=== PATIENT | male | born 1965 | race Caucasian/White ===

== ENCOUNTER → 2017-08-14 | Outpatient (CLI) | payer BC ==
--- NOTE | 2017-08-15 06:17 | RAD ---
HISTORY: Left foot popping and pain, tenderness Study: Left foot AP, lateral, oblique Comparison: None Findings: There is a nondisplaced transverse fracture of the base of the 5th metatarsal present. The remainder of the bones and joints of the foot are intact and normally aligned. No definite soft tissue abnormal ity is identified. IMPRESSION: Nondisplaced transverse fracture base 5th metatarsal Reported By:
== END | disposition home or self-care (01) | DRG 556 ==
LOC: RAD 15:43
PROVIDERS: ATTEND Obstetrics & Gynecology Obstetrics
DX: M25.572 Pain in left ankle and joints of left foot (principal); S92.355A Nondisplaced fracture of fifth metatarsal bone, left foot, initial encounter for closed fracture; X58.XXXA Exposure to other specified factors, initial encounter
CPT/HCPCS: 73630

== ENCOUNTER → 2017-11-29 | Outpatient (CLI) | payer BC ==
[2017-11-29 08:11] LABS: BASOPHILS # (AUTO) 0.1 X10^3/uL (0.0-0.1); EOSINOPHILS # (AUTO) 0.1 x10^3/uL (0.0-0.2); EOSINOPHILS % (AUTO) 1.5 % (0.9-2.9); HEMATOCRIT 42.9 % (42.0-54.0); HEMOGLOBIN 15.1 g/dL (13.5-18.0); LYMPHOCYTES # (AUTO) 1.8 X10^3/uL (1.3-2.9); LYMPHOCYTES % (AUTO) 25.5 % (21.0-51.0); MEAN CORPUSCULAR HEMOGLOBIN 30.1 pg (27.0-34.0); MEAN CORPUSCULAR HGB CONC 35.3 g/dL (33.0-35.0); MEAN CORPUSCULAR VOLUME 85.1 fL (80.0-100.0); MEAN PLATELET VOLUME 7.7 fL (7.4-11.0); MONOCYTES # (AUTO) 0.4 x10^3/uL (0.3-0.8); MONOCYTES % (AUTO) 5.6 % (0.0-13.0); NEUTROPHILS # (AUTO) 4.7 x10^3/uL (2.2-4.8); NEUTROPHILS % (AUTO) 65.4 % (42.0-75.0); PLATELET COUNT 336 X10^3/uL (150.0-450.0); RED BLOOD COUNT 5.04 X10^6/uL (4.7-6.0); RED CELL DISTRIBUTION WIDTH 12.9 % (11.6-16.5); WHITE BLOOD COUNT 7.2 X10^3/uL (3.6-10.0)
[2017-11-29 08:13] LABS: ALANINE AMINOTRANSFERASE 44 Units/L (12-78); ALBUMIN 3.6 g/dL (3.4-5.0); ALKALINE PHOSPHATASE 101 Units/L (46-116); ASPARTATE AMINO TRANSFERASE 25 Units/L (15-37); BLOOD UREA NITROGEN 17 mg/dL (7-18); CALCIUM 8.1 mg/dL (8.5-10.1); CARBON DIOXIDE 26.8 mmol/L (21-32); CHLORIDE 104 mmol/L (98-107); COR NA(FOR HYPERGLY) 137 mmol/L (136-145); CREATININE 1.23 mg/dL (0.70-1.30); SODIUM 137 mmol/L (136-145); TOTAL PROTEIN 7.5 g/dL (6.4-8.2); eGFR BLACK RACES > 60 (>60); eGFR NON BLACK RACES > 60 (>60)
--- NOTE | 2017-11-29 08:17 | RAD ---
Examination: Chest, PA and lateral views History: Preop Findings: Normal appearance of heart, lungs, mediastinum and pleural spaces. Impression: Chest examination within normal limits. Reported By:
== END ==
LOC: LAB 07:40
PROVIDERS: ATTEND Surgery
DX: Z01.818 Encounter for other preprocedural examination (principal); Z01.810 Encounter for preprocedural cardiovascular examination; Z01.811 Encounter for preprocedural respiratory examination; K40.90 Unilateral inguinal hernia, without obstruction or gangrene, not specified as recurrent
CPT/HCPCS: 36415; 71046; 80053; 85025; 93005; 93010

== ENCOUNTER 2017-12-16 17:51 | Observation (INO) ==
[2017-12-16] MEDS ORDERED: D5 1/2 NS 1000 ML 1,000 ML IV ONE (17:59)
[2017-12-16] MEDS ORDERED: ELIQUIS ONE (18:00)
[2017-12-16] MEDS: ELIQUIS PO SCH ×2 (18:18→21:17)
[2017-12-16] MEDS: D5 1/2 NS 1000 ML 1,000 ML IV SCH (18:18)
[2017-12-16 18:57] VITALS: BMI 30.3
[2017-12-16] MEDS: RESTORIL CAP 15 MG PO PRN (21:17)
[2017-12-17] MEDS: D5 1/2 NS 1000 ML 1,000 ML IV SCH ×4 (05:17→20:37)
[2017-12-17 06:07] LABS: BASOPHILS # (AUTO) 0.1 X10^3/uL (0.0-0.1); BASOPHILS % (AUTO) 1.3 % (0.2-1.0); EOSINOPHILS # (AUTO) 0.3 x10^3/uL (0.0-0.2); EOSINOPHILS % (AUTO) 3.9 % (0.9-2.9); HEMATOCRIT 34.4 % (42.0-54.0); LYMPHOCYTES % (AUTO) 24.9 % (21.0-51.0); MEAN CORPUSCULAR HEMOGLOBIN 29.7 pg (27.0-34.0); MEAN CORPUSCULAR HGB CONC 34.8 g/dL (33.0-35.0); MEAN CORPUSCULAR VOLUME 85.4 fL (80.0-100.0); MEAN PLATELET VOLUME 7.5 fL (7.4-11.0); MONOCYTES # (AUTO) 0.7 x10^3/uL (0.3-0.8); MONOCYTES % (AUTO) 9.4 % (0.0-13.0); NEUTROPHILS # (AUTO) 4.8 x10^3/uL (2.2-4.8); NEUTROPHILS % (AUTO) 60.5 % (42.0-75.0); PLATELET COUNT 420 X10^3/uL (150.0-450.0); RED BLOOD COUNT 4.03 X10^6/uL (4.7-6.0); RED CELL DISTRIBUTION WIDTH 12.9 % (11.6-16.5); WHITE BLOOD COUNT 7.9 X10^3/uL (3.6-10.0)
[2017-12-17 06:27] LABS: ALANINE AMINOTRANSFERASE 107 Units/L (12-78); ALBUMIN 2.4 g/dL (3.4-5.0); ALKALINE PHOSPHATASE 165 Units/L (46-116); ASPARTATE AMINO TRANSFERASE 29 Units/L (15-37); BLOOD UREA NITROGEN 13 mg/dL (7-18); CALCIUM 7.6 mg/dL (8.5-10.1); CARBON DIOXIDE 24.6 mmol/L (21-32); CHLORIDE 104 mmol/L (98-107); COR CA(FOR HYPOALB) 8.9 mg/dL (8.5-10.1); COR NA(FOR HYPERGLY) 138 mmol/L (136-145); SODIUM 137 mmol/L (136-145); TOTAL PROTEIN 6.8 g/dL (6.4-8.2); eGFR NON BLACK RACES > 60 (>60)
--- NOTE | 2017-12-17 07:14 | RAD ---
Chest one view. Indication: Shortness of breath Findings: Comparison 12/16/2017 The heart and mediastinum are stable. There is persistent left basilar nodular density. There is no v enous congestion or pneumothorax. The skeletal structures are stable. Impression: Persistent left lower lobe airspace changes. Underlying infiltrate not excluded. Reported By:
[2017-12-17] MEDS: ELIQUIS PO SCH ×2 (08:20→20:37)
--- NOTE | 2017-12-17 09:44 | VAS ---
HISTORY: 52-year-old male with bilateral pulmonary emboli. Study: Venous duplex Doppler bilateral lower extremities. Comparison: None. TECHNIQUE: Multiple carlos scale and color flow Doppler images of the deep venous system were obtained of the right and left lower extremity. FINDINGS: The deep venous system of the right and left lower extremities were evaluated from the level of the c ommon femoral vein through the popliteal vein. Normal color flow and augmentation can be observed. In addition, normal compression is seen throughout the deep venous system. IMPRESSION: 1. Negative for DVT. Reported By:
--- NOTE | 2017-12-17 13:41 | DR.PROGNOT ---
Hospital Progress Notes - Progress Note for Day of: Progress Note Date: 12/17/17 - Chief Complaint Chief Complaint: mild to moderate SOB . blood tinged cough . no chest pain . no evidence of DVT on Doppler studies . pt is anticoagulated allready . - Past Medical Family Social History Allergies: Allergies No Known Drug Allergies Allergy (Verified 12/06/17 07:30) - Vital Signs Vital Signs: Temperature 98.8 F Pulse Rate [Apical] 79 Respiratory Rate 18 Blood Pressure [Left Arm] 126/73 Blood Pressure [Right Arm] 118/68 Blood Pressure 140/85 O2 Sat by Pulse Oximetry 97 - Physical Exam Oriented: Normal Eyes: Normal Ear: Normal Nose: Normal Throat: Normal Respiratory: Normal, Left. negative: Right, Generalized, Superior, Inferior, Diminished, Rales, Rhonchi, OTHER GI: Tenderness: Normal, RLQ (Rt groin incision is healing well , no infection) Mood Description: Calm, Appropriate Affect: Normal Speech Pattern: Clear, Appropriate - Laboratory and Diagnostics Result Diagrams: 12/17/17 05:41 12/17/17 05:41 Labs: Laboratory WBC 7.9 X10^3/uL (3.6-10.0) 12/17/17 05:41 RBC 4.03 X10^6/uL (4.7-6.0) L 12/17/17 05:41 Hgb 12.0 g/dL (13.5-18.0) L 12/17/17 05:41 Hct 34.4 % (42.0-54.0) L 12/17/17 05:41 MCV 85.4 fL (80.0-100.0) 12/17/17 05:41 MCH 29.7 pg (27.0-34.0) 12/17/17 05:41 MCHC 34.8 g/dL (33.0-35.0) 12/17/17 05:41 RDW 12.9 % (11.6-16.5) 12/17/17 05:41 Plt Count 420 X10^3/uL (150.0-450.0) 12/17/17 05:41 MPV 7.5 fL (7.4-11.0) 12/17/17 05:41 Neut % (Auto) 60.5 % (42.0-75.0) 12/17/17 05:41 Lymph % (Auto) 24.9 % (21.0-51.0) 12/17/17 05:41 Johnson % (Auto) 9.4 % (0.0-13.0) 12/17/17 05:41 Eos % (Auto) 3.9 % (0.9-2.9) H 12/17/17 05:41 Baso % (Auto) 1.3 % (0.2-1.0) H 12/17/17 05:41 Neut # (Auto) 4.8 x10^3/uL (2.2-4.8) 12/17/17 05:41 Lymph # (Auto) 2.0 X10^3/uL (1.3-2.9) 12/17/17 05:41 Johnson # (Auto) 0.7 x10^3/uL (0.3-0.8) 12/17/17 05:41 Eos # (Auto) 0.3 x10^3/uL (0.0-0.2) H 12/17/17 05:41 Baso # (Auto) 0.1 X10^3/uL (0.0-0.1) 12/17/17 05:41 Absolute Nucleated RBC 0.0 /100WBC 12/17/17 05:41 Sodium 137 mmol/L (136-145) 12/17/17 05:41 Corrected Sodium 138 mmol/L (136-145) 12/17/17 05:41 Potassium 4.4 mmol/L (3.5-5.1) 12/17/17 05:41 Chloride 104 mmol/L (98-107) 12/17/17 05:41 Carbon Dioxide 24.6 mmol/L (21-32) 12/17/17 05:41 BUN 13 mg/dL (7-18) 12/17/17 05:41 Creatinine 1.00 mg/dL (0.70-1.30) 12/17/17 05:41 Est GFR (MDRD) Af Amer > 60 (>60) 12/17/17 05:41 Est GFR (MDRD) Non-Af > 60 (>60) 12/17/17 05:41 Glucose 127 mg/dL (65-99) H 12/17/17 05:41 Calcium 7.6 mg/dL (8.5-10.1) L 12/17/17 05:41 Corrected Calcium 8.9 mg/dL (8.5-10.1) 12/17/17 05:41 Total Bilirubin 0.30 mg/dL (0.2-1.0) 12/17/17 05:41 AST 29 Units/L (15-37) 12/17/17 05:41 ALT 107 Units/L (12-78) H 12/17/17 05:41 Alkaline Phosphatase 165 Units/L (46-116) H 12/17/17 05:41 Total Protein 6.8 g/dL (6.4-8.2) 12/17/17 05:41 Albumin 2.4 g/dL (3.4-5.0) L 12/17/17 05:41 Globulin 4.4 g/dL (2.5-4.5) 12/17/17 05:41 Albumin/Globulin Ratio 0.5 Ratio (1.1-2.1) L 12/17/17 05:41 - Assessment and Plan 1: bilateral segmental PE . no acuter distress. same coagulation , limited ambulation and soft diet - Problem Patient Problems: Patient Problems Pulmonary air embolism (Acute) T79.0XXA
[2017-12-17] MEDS: RESTORIL CAP 15 MG PO PRN (20:37)
[2017-12-18 06:33] LABS: BASOPHILS # (AUTO) 0.1 X10^3/uL (0.0-0.1); EOSINOPHILS # (AUTO) 0.3 x10^3/uL (0.0-0.2); EOSINOPHILS % (AUTO) 4.1 % (0.9-2.9); HEMATOCRIT 37.1 % (42.0-54.0); HEMOGLOBIN 12.9 g/dL (13.5-18.0); LYMPHOCYTES # (AUTO) 1.5 X10^3/uL (1.3-2.9); LYMPHOCYTES % (AUTO) 21.7 % (21.0-51.0); MEAN CORPUSCULAR HEMOGLOBIN 29.6 pg (27.0-34.0); MEAN CORPUSCULAR HGB CONC 34.7 g/dL (33.0-35.0); MEAN CORPUSCULAR VOLUME 85.5 fL (80.0-100.0); MEAN PLATELET VOLUME 7.6 fL (7.4-11.0); MONOCYTES # (AUTO) 0.6 x10^3/uL (0.3-0.8); NEUTROPHILS # (AUTO) 4.5 x10^3/uL (2.2-4.8); NEUTROPHILS % (AUTO) 65.2 % (42.0-75.0); PLATELET COUNT 552 X10^3/uL (150.0-450.0); RED BLOOD COUNT 4.35 X10^6/uL (4.7-6.0); RED CELL DISTRIBUTION WIDTH 13.1 % (11.6-16.5); WHITE BLOOD COUNT 6.9 X10^3/uL (3.6-10.0)
[2017-12-18 06:50] LABS: ALANINE AMINOTRANSFERASE 103 Units/L (12-78); ALBUMIN 2.6 g/dL (3.4-5.0); ALKALINE PHOSPHATASE 166 Units/L (46-116); ASPARTATE AMINO TRANSFERASE 29 Units/L (15-37); BLOOD UREA NITROGEN 8 mg/dL (7-18); CALCIUM 7.9 mg/dL (8.5-10.1); CARBON DIOXIDE 26.5 mmol/L (21-32); CHLORIDE 103 mmol/L (98-107); COR NA(FOR HYPERGLY) 139 mmol/L (136-145); CREATININE 1.06 mg/dL (0.70-1.30); SODIUM 138 mmol/L (136-145); TOTAL PROTEIN 7.4 g/dL (6.4-8.2); eGFR NON BLACK RACES > 60 (>60)
[2017-12-18] MEDS: ELIQUIS PO SCH (08:23)
[2017-12-18] MEDS: D5 1/2 NS 1000 ML 1,000 ML IV SCH (13:28)
[2017-12-18 15:08] VITALS: BP 123/69
== END 2017-12-18 15:50 | disposition home or self-care (01) ==
LOC: INTOOBSV 17:51 → ICU 17:51
PROVIDERS: ADMIT Obstetrics & Gynecology Obstetrics; ATTEND Obstetrics & Gynecology Obstetrics
DX: I26.99 Other pulmonary embolism without acute cor pulmonale; Z98.890 Other specified postprocedural states; R06.02 Shortness of breath; J90 Pleural effusion, not elsewhere classified
CPT/HCPCS: 36415; 71010; 71045; 80053; 85025; 93970; G0378; S5010